=== PATIENT | female | born 1930 | race Caucasian/White ===

== ENCOUNTER 2020-11-11 14:22 | Emergency (ER) | payer MEDICARE, BC ==
--- NOTE | 2020-11-11 14:36 | ED Physician Documentation ---
PD HPI FOCAL NEURO - Stated complaint Stated Complaint: SLURR SPEACH - History obtained from History obtained from: Patient, Family - Additional information Additional information: This is a very pleasant 89-year-old woman who presents by private vehicle accompanied by her daughter. She has a history of TIA last year and after that was put on Xarelto although she does not think she has atrial fibrillation. She also takes pravastatin, Synthroid. Today she was in her normal state of health and had a brief episode where she could not name items. Seems to be better now. She also had some slurred speech at the time. Review of Systems Ten Systems: 10 systems reviewed and negative Constitutional: reports: Reviewed and negative Nose: reports: Reviewed and negative Throat: reports: Reviewed and negative Cardiac: reports: Reviewed and negative PD PAST MEDICAL HISTORY - Present Medications Home Medications: Ambulatory Orders Medication Instructions Recorded Confirmed Anxiety Med 11/11/20 Levothyroxine Sodium [Synthroid] 0 mcg PO DAILY 11/11/20 11/11/20 Pravastatin [Pravachol] 0 mg DAILY 11/11/20 11/11/20 Rivaroxaban [Xarelto] 0 mg DAILY 11/11/20 11/11/20 - Allergies Allergies/Adverse Reactions: Allergies Allergy/AdvReac Type Severity Reaction Status Date / Time scopolamine Allergy Unknown Verified 11/11/20 15:33 PD ED PE NORMAL - Vitals Vital signs reviewed: Yes - General General: Alert and oriented X 3, No acute distress - HEENT HEENT: PERRL, EOMI - Neck Neck: Supple, no meningeal sign, No bony TTP - Cardiac Cardiac: Other (Irregularly irregular without murmur) - Respiratory Respiratory: No respiratory distress, Clear bilaterally - Abdomen Abdomen: Normal bowel sounds, Soft, Non tender - Back Back: No CVA TTP, No spinal TTP - Derm Derm: Normal color, Warm and dry - Extremities Extremities: No edema, No calf tenderness / cord - Neuro Neuro: Alert and oriented X 3, Normal speech NIHSS - Time Time: 14:30 - Level of Consciousness Level of consciousness: (0) Alert, Keenly responsive LOC Questions: (0) Answers both Q's correct LOC Commands: (0) Performs both correctly - Gaze Best Gaze: (0) Normal - Visual Visual: (0) No loss - Facial Palsy Facial Palsy: (0) Normal, symmetrical movement - Motor Arms (both separate) Motor Arm (right): (0) No drift Motor Arm (left): (0) No drift - Motor Legs (both separate) Motor Leg (right): (0) No drift Motor Leg (left): (0) No drift - Limb Ataxia Limb Ataxia: (0) Absent - Sensory Sensory: (0) Normal - Best Language Best Language: (0) No aphasia - Dysarthria Dysarthria: (0) Normal - Extinction and Inattention (formally neg Extinction and inattention: (0) No abnormality - Total Score/Results Total Score/Result: 0 Results - Vitals Vitals: Vital Signs - 24 hr 11/11/20 11/11/20 11/11/20 14:23 15:00 15:30 Temperature 36.1 C L Heart Rate 85 73 67 Respiratory 20 16 20 Rate Blood Pressure 123/87 H 145/87 H 131/70 H O2 Saturation 100 97 100 Oxygen O2 Source Room air - EKG (time done) 1443 Rate: Rate (enter#) (75) Rhythm: NSR (PACs) [place]: Normal Intervals: Normal NM QRS: Normal, Low voltage Ischemia: Non specific changes Compare to prior EKG: Old EKG unavailable Computer interpretation: Agree with computer - Labs Labs: Laboratory Tests 11/11/20 11/11/20 14:50 14:50 WBC 5.7 RBC 4.49 Hgb 13.4 Hct 39.8 MCV 88.6 MCH 29.8 MCHC 33.7 RDW 13.4 Plt Count 276 MPV 9.9 Neut # (Auto) 4.1 Lymph # (Auto) 0.9 L [place] # (Auto) 0.6 Eos # (Auto) 0.1 Baso # (Auto) 0.0 Absolute Nucleated RBC 0.00 Nucleated RBC % 0.0 Sodium 136 Potassium 3.9 Chloride 96 L Carbon Dioxide 25 Anion Gap 15.0 H BUN 13 Creatinine 0.7 Estimated GFR (MDRD) 79 L Glucose 111 H Calcium 9.5 Magnesium 2.2 Total Bilirubin 0.4 AST 15 ALT 12 Alkaline Phosphatase 56 Total Protein 7.0 Albumin 3.8 Globulin 3.2 Albumin/Globulin Ratio 1.2 PD MEDICAL DECISION MAKING - ED course ED course: 89-year-old woman without formal known diagnosis of A. fib but presume this was seen in the past given frequent PVCs here presents with brief aphasia that has since resolved and resultantly now has an NIH stroke scale of 0. CT angiography of the head was negative for acute pathology and there was no vascular disease of note on the angiography of the neck, she did have a's right suprahilar area of consolidation, this was discussed with the patient and daughter. 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 Departure - Departure Disposition: 01 Home, Self Care Clinical Impression: TIA (transient ischemic attack) Condition: Good Record reviewed to determine appropriate education?: Yes Instructions: ED Transient Ischemic Attack Comments: You seem to be maximally medically managed for stroke prevention, continue current medications and follow-up with Dr. Lawrence, next available appointment. As discussed you do have a mass on the right side of your chest, based on your history this may be related to previously treated tumor or scar tissue that was treated at [facility] in [place] but close follow-up and repeat imaging will be necessary.
[2020-11-11] MEDS ORDERED: IOVERSOL 320 100 ML VIAL IVP ONE ×2 (14:48→18:11)
[2020-11-11 14:58] LABS: BASOPHILS % (AUTO) 0.5 %; EOSINOPHILS # (AUTO) 0.1 10^3/uL (0.0-0.7); EOSINOPHILS % (AUTO) 1.2 %; HGB - HEMOGLOBIN 13.4 g/dL (12.0-16.0); LYMPHOCYTES # (AUTO) 0.9 10^3/uL (1.5-3.5); LYMPHOCYTES % (AUTO) 16.4 %; MEAN CORPUSCULAR HEMOGLOBIN 29.8 pg (27.0-31.0); MEAN CORPUSCULAR HGB CONC 33.7 g/dL (32.0-36.0); MEAN CORPUSCULAR VOLUME 88.6 fL (81.0-99.0); MEAN PLATELET VOLUME 9.9 fL (7.9-10.8); MONOCYTES # (AUTO) 0.6 10^3/uL (0.0-1.0); MONOCYTES % (AUTO) 9.7 %; NEUTROPHILS # (AUTO) 4.1 10^3/uL (1.5-6.6); NEUTROPHILS % (AUTO) 71.7 %; PLT - PLATELET COUNT 276 10^3/uL (130-450); RED BLOOD COUNT 4.49 10^6/uL (4.20-5.40); RED CELL DISTRIBUTION WIDTH 13.4 % (12.0-15.0); WHITE BLOOD COUNT 5.7 x10^3/uL (4.8-10.8)
[2020-11-11 15:11] LABS: ALBUMIN 3.8 g/dL (3.2-5.5); ALBUMIN/GLOBULIN RATIO 1.2 (1.0-2.2); BILIRUBIN,TOTAL 0.4 mg/dL (0.2-1.0); CALCIUM 9.5 mg/dL (8.5-10.3); CREATININE 0.7 mg/dL (0.4-1.0); MAGNESIUM 2.2 mg/dL (1.7-2.8)
--- NOTE | 2020-11-11 16:01 | CT Report ---
PROCEDURE: ANGIO HEAD W/WO INDICATIONS: aphasia CONTRAST: IV CONTRAST: Optiray 320 ml: 80 PO CONTRAST: *NO PO CONTRAST TECHNIQUE: Precontrast 4.5 mm thick angled axial sections acquired from the foramen magnum to the vertex. Afte r the administration of intravenous contrast, 1 mm thick sections acquired through the [place] of [place] is. Postcontrast 4.5 mm thick sections then re-acquired from the foramen magnum to the vertex. 3-di mensional rbiadfv-peiarnhni-fgmugoazzm (MIP) and/or volume rendering reformats were acquired of the c entral intracranial vasculature. For radiation dose reduction, the following was used: automated ex posure control, adjustment of mA and/or kV according to patient size. COMPARISON: Correlation is made with the accompanying neck CT angiogram 11/11/2020. FINDINGS: Image quality: Excellent. Anterior circulation: Intracranial internal carotid arteries are normal in size and flow. The flow within the paired anterior cerebral arteries is normal and symmetric. The flow within the middle cer ebral arteries is normal and symmetric. The anterior communicating artery is seen. No aneurysms are seen. Posterior circulation: Visualized portions of the vertebral arteries demonstrate normal caliber, and join to form a normal appearing basilar artery. Flow within the posterior cerebral arteries is norm al and symmetric. No aneurysms are seen. CSF spaces: Ventricles are normal in size and shape. Basal cisterns are patent. Bilateral low-densi ty chronic appearing subdural hygromas can be seen superiorly, which are best demonstrated on coronal images, as on series 7 image 19. Brain: No midline shift. A low-density focus, which most likely represents a remote infarction can b e seen within the deep white matter of the left frontal lobe, as on series 6 image 17. No intracrania l bleeds or masses. [place]-white matter interface appears intact. Skull and face: Calvarium and facial bones appear intact, without suspicious lesions. Hyperostosis frontalis is incidentally noted, which is not frankly abnormal for a female patient of this age. Sinuses: Visualized sinuses and mastoids are clear. IMPRESSION: No intracranial hemorrhage is seen. No significant intracranial abnormality is seen. No significant intracranial arterial abnormalities are seen. Chronic appearing apparent bilateral subdural hygromas. Please correlate with known patient history a nd any prior relevant outside imaging. There is a nonenhancing low-density focus seen involving the left frontal lobe, which most likely rep resents a remote focal infarction. Reviewed by: Aravind Hanson MD on 11/11/2020 3:00 PM [facility] Approved by: Aravind Hanson MD on 11/11/2020 3:00 PM [facility] Station ID: [id number]
--- NOTE | 2020-11-11 16:06 | CT Report ---
PROCEDURE: ANGIO NECK W INDICATIONS: aphasia CONTRAST: IV CONTRAST: Optiray 320 ml: 80 PO CONTRAST: *NO PO CONTRAST TECHNIQUE: After the administration of intravenous contrast, 1.5 mm axial sections acquired from the aortic arch to the [place] of [place]. Coronal 3-D maximum intensity projection (MIP) and/or volume rendering ref ormats were then performed. For radiation dose reduction, the following was used: automated exposur e control, adjustment of mA and/or kV according to patient size. COMPARISON: Correlation is made with the accompanying head CT angiogram, 11/11/2020. FINDINGS: Image quality: Excellent. Carotid system: The great vessels demonstrate a conventional anatomy as they arise from the aortic a rch. The origins of the common carotid arteries appear patent. The common carotid arteries demonstr ate normal calibers and courses. The bifurcation regions appear normal bilaterally. The internal ca rotid arteries demonstrate normal caliber. Tortuosity is seen of the internal carotid arteries, righ t worse than left. Posterior circulation: The origins of the vertebral arteries appear patent. The more superior porti ons of the vertebral arteries demonstrate normal course and caliber. They join to form a normal appe aring basilar artery. Soft tissues: No obvious evidence changes can be seen involving the lung apices. There is a poorly d efined area of masslike density seen involving the right suprahilar region that measures up to 3.4 cm , as on series 2 image 44. Visualized neck soft tissues demonstrate no suspicious abnormalities. The thyroid gland is normal in size. Bones: No suspicious bony lesions. Visualized cervical spine appears normally aligned. Relatively prominent cervical spine degenerative changes are seen. S-shaped scoliotic curvature is incidentally noted. IMPRESSION: No hemodynamically significant stenosis can be seen within the arteries of the neck. There is a 3.4 cm area of focal consolidation seen involving the right suprahilar region. Although th is is most likely related to atelectasis, differential diagnosis includes neoplasm in a patient of th is age. When clinically appropriate, please consider a short-term follow-up chest CT with IV contrast for further evaluation. The estimate of stenosis included in the report of the imaging study was calculated using the NASCET method Reviewed by: Aravind Hanson MD on 11/11/2020 3:04 PM [facility] Approved by: Aravind Hanson MD on 11/11/2020 3:04 PM [facility] Station ID: [id number]
[2020-11-11 16:46] VITALS: BP 130/78
== END 2020-11-11 16:46 | disposition home or self-care (01) ==
LOC: ED 14:22
DX: G45.9 Transient cerebral ischemic attack, unspecified (principal); I49.3 Ventricular premature depolarization; R91.8 Other nonspecific abnormal finding of lung field; Z79.01 Long term (current) use of anticoagulants
CPT/HCPCS: 36415; 70496; 70498; 80053; 83735; 85025; 93005; 99283; 99284; Q9967

== ENCOUNTER 2020-12-07 10:15 | Outpatient (CLI) | payer MEDICARE, BC ==
[2020-12-07 15:03] LABS: BASOPHILS % (AUTO) 0.5 %; EOSINOPHILS % (AUTO) 0.3 %; HGB - HEMOGLOBIN 13.7 g/dL (12.0-16.0); LYMPHOCYTES # (AUTO) 0.9 10^3/uL (1.5-3.5); LYMPHOCYTES % (AUTO) 13.8 %; MEAN CORPUSCULAR HEMOGLOBIN 29.4 pg (27.0-31.0); MEAN CORPUSCULAR HGB CONC 32.2 g/dL (32.0-36.0); MEAN CORPUSCULAR VOLUME 91.4 fL (81.0-99.0); MEAN PLATELET VOLUME 10.9 fL (7.9-10.8); MONOCYTES # (AUTO) 0.5 10^3/uL (0.0-1.0); MONOCYTES % (AUTO) 7.9 %; PLT - PLATELET COUNT 306 10^3/uL (130-450); RED BLOOD COUNT 4.66 10^6/uL (4.20-5.40); RED CELL DISTRIBUTION WIDTH 13.8 % (12.0-15.0); WHITE BLOOD COUNT 6.4 x10^3/uL (4.8-10.8)
[2020-12-07 15:15] LABS: ALBUMIN/GLOBULIN RATIO 1.3 (1.0-2.2); ALKALINE PHOSPHATASE 52 IU/L (42-121); ALT ALANINE AMINOTRANSFERASE 14 IU/L (10-60); AST ASPARTATE AMINOTRANSFERASE 18 IU/L (10-42); BILIRUBIN,TOTAL 0.7 mg/dL (0.2-1.0); BUN - BLOOD UREA NITROGEN 13 mg/dL (6-20); CALCIUM 9.3 mg/dL (8.5-10.3); CARBON DIOXIDE - CO2 27 mmol/L (21-32); CHLORIDE 95 mmol/L (101-111); CHOL/HDL RATIO 2.3 (<4.4); CHOLESTEROL 173 mg/dL; CREATININE 0.8 mg/dL (0.4-1.0); GLUCOSE 109 mg/dL (70-100); HDL CHOLESTEROL 74 mg/dL; LDL CHOLESTEROL,CALCULATED 78 mg/dL; LDL/HDL RATIO 1.1 (<4.4); VLDL CHOLESTEROL 21 mg/dL
== END 2020-12-07 10:16 | disposition home or self-care (01) ==
LOC: LAB.S 10:15
PROVIDERS: ATTEND Internal Medicine
DX: Z79.899 Other long term (current) drug therapy (principal); E03.9 Hypothyroidism, unspecified
CPT/HCPCS: 36415; 80053; 80061; 83721; 84443; 85025